=== PATIENT | female | born 1985 | race African-American/Black ===

== ENCOUNTER 2016-09-08 19:02 | Emergency (ER) | payer MEDICAID | END 2016-09-08 20:20 | disposition home or self-care (01) | DX: J06.9 Acute upper respiratory infection, unspecified (principal); B97.89 Other viral agents as the cause of diseases classified elsewhere; O99.513 Diseases of the respiratory system complicating pregnancy, third trimester; Z3A.38 38 weeks gestation of pregnancy ==

== ENCOUNTER 2017-05-11 13:58 | Outpatient (CLI) | payer MEDICAID ==
--- NOTE | 2017-05-12 11:10 | XRAY Report ---
LEFT ANKLE: 05/11/2017 COMPARISON: None. INDICATION: Ankle pain. TECHNIQUE: Three views of the left ankle. FINDINGS: There is a small lateral bone fragment likely related to old trauma. There is a large posterior ossific fragment which may contribute to impingement. No evidence of acute fracture. Alignment appears normal. IMPRESSION: 1. LARGE POSTERIOR OSSIFIC FRAGMENT MAY CONTRIBUTE TO IMPINGEMENT. CORRELATE CLINICALLY. 2. LIKELY OLD SMALL BONE FRAGMENT ABOUT THE LATERAL JOINT. JOB #: [id number] EXT JOB #: [id number] [facility]
== END 2017-05-11 13:59 | disposition home or self-care (01) ==
LOC: DI.N 13:58
PROVIDERS: ATTEND Nurse Practitioner Gerontology
DX: M25.572 Pain in left ankle and joints of left foot (principal)

== ENCOUNTER 2017-05-23 20:57 | Emergency (ER) | payer MEDICAID ==
[2017-05-23 21:07] VITALS: BP 115/73
--- NOTE | 2017-05-23 21:17 | ED Physician Documentation ---
PD HPI SKIN - Stated complaint Stated Complaint: ITCHY - Chief complaint Chief Complaint: Wound - History obtained from History obtained from: Patient - History of Present Illness Timing - onset: Other (Her daughter has head lice. 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 05/23/17 - Allergies Allergies/Adverse Reactions: Allergies Allergy/AdvReac Type Severity Reaction Status Date / Time No Known Drug Allergies Allergy Verified 05/23/17 21:04 - Social History Does the pt smoke?: No Smoking Status: Never smoker Does the pt drink ETOH?: No Does the pt have substance abuse?: No - Immunizations Immunizations are current?: Yes - POLST Patient has POLST: No PD ED PE NORMAL - Vitals Vital signs reviewed: Yes - General General: Alert and oriented X 3, No acute distress - Derm Derm: Other (Scabies type rash on arms. No nits in hair.) - Neuro Neuro: Alert and oriented X 3, Normal speech - Psych Psych: Normal mood, Normal affect Results - Vitals Vitals: Vital Signs - 24 hr 05/23/17 21:05 Temperature 36.0 C L Heart Rate 99 Respiratory 16 Rate Blood Pressure 115/73 O2 Saturation 96 Oxygen O2 Source Room air Departure - Departure Disposition: 01 Home, Self Care Clinical Impression: Head lice, Scabies Condition: Good Record reviewed to determine appropriate education?: Yes Instructions: ED Lice Head, ED Scabies Prescriptions: Permethrin 5% Cream 60 gm TP ONCE #2 cream..g. Comments: Buy nix shampoo which is available over the counter and use as instructed on the package Also benadryl for the itching.
== END 2017-05-23 21:27 | disposition home or self-care (01) ==
LOC: ED 20:57
DX: B85.0 Pediculosis due to Pediculus humanus capitis (principal); B86 Scabies
CPT/HCPCS: 99281; 99282

== ENCOUNTER 2017-06-20 20:14 | Emergency (ER) | payer MEDICAID ==
[2017-06-20 20:27] VITALS: BP 100/75
--- NOTE | 2017-06-20 21:11 | ED Physician Documentation ---
PD HPI SKIN - Stated complaint Stated Complaint: RASH - Chief complaint Chief Complaint: Wound - History obtained from History obtained from: Patient - History of Present Illness Timing - details: Abrupt onset, Now resolved Location: RUE, LUE, Bodywide Quality / character: Itchy. No: Painful, Burning Improved by: Benadryl Associated symptoms: No: Myalgias, Abd pain, N/V/D Similar symptoms before: Work up / diagnostics, Treatment Recently seen: Emergency Dept - Additional information Additional information: Patient is a 31 year old female presenting to the emergency department for an apparent allergic reaction. Patient states that this evening her skin was itching and she had a rash. she took bendaryl and it went away. Patient states that the only change is that they bought a hamster about a month ago. Review of Systems Constitutional: denies: Fever, Myalgias Eyes: denies: Discharge, Irritation Ears: denies: Ear pain, Drainage/discharge, Tinnitus/ringing Nose: denies: Rhinorrhea / runny nose, Congestion Cardiac: denies: Chest pain / pressure Respiratory: denies: Dyspnea, Wheezing GI: denies: Nausea, Vomiting, Constipation Skin: reports: Rash. denies: Abrasion (s) Musculoskeletal: denies: Extremity pain, Joint pain, Extremity swelling Neurologic: reports: Generalized weakness. 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 05/23/17 - Allergies Allergies/Adverse Reactions: Allergies Allergy/AdvReac Type Severity Reaction Status Date / Time No Known Drug Allergies Allergy Verified 05/23/17 21:04 - Social History Does the pt smoke?: No Smoking Status: Never smoker Does the pt drink ETOH?: No Does the pt have substance abuse?: No - Immunizations Immunizations are current?: Yes - POLST Patient has POLST: No PD ED PE NORMAL - General General: Alert and oriented X 3, No acute distress - HEENT HEENT: Atraumatic, PERRL - Neck Neck: Supple, no meningeal sign, No JVD - Cardiac Cardiac: RRR, No murmur - Respiratory Respiratory: No respiratory distress, Clear bilaterally - Abdomen Abdomen: Soft, Non distended - Derm Derm: Normal color, Warm and dry, No rash - Extremities Extremities: No deformity, Normal ROM s pain, No calf tenderness / cord - Neuro Neuro: Alert and oriented X 3, No motor deficit, No sensory deficit, Normal speech Results - Vitals Vitals: Vital Signs - 24 hr 06/20/17 20:23 Temperature 36.4 C L Heart Rate 89 Respiratory 16 Rate Blood Pressure 100/75 O2 Saturation 99 Oxygen O2 Source Room air PD MEDICAL DECISION MAKING - ED course Complexity details: reviewed old records, re-evaluated patient, considered differential, d/w patient ED course: Patient was seen and examined at bedside. patient was well appearing and rash had already resolved. patient required no inpatient testing. Patient had no airway involvement and was stable for discharge with outpatient follow up. Departure - Departure Disposition: Home, Self Care Clinical Impression: Allergic reaction Condition: Good Instructions: ED Allergic Reaction General Other Follow-Up: Alicja Zimmer ARNP [Primary Care Provider] - Within 1 week Comments: Your symptoms have resolved and are likely secondary to an allergic reaction. You should try avoiding the hamster or the hamster bedding. You can take benadryl as needed fro itching. You should follow up with your doctor if symptoms persist and possible see an intern to determine what exactly you are allergic too. You should return to the emergency department for facial swelling, tongue swelling or shortness of breath. Discharge Date/Time: 06/20/17 21:22
== END 2017-06-20 21:22 | disposition home or self-care (01) ==
LOC: ED 20:14
DX: T78.49XA Other allergy, initial encounter (principal); X58.XXXA Exposure to other specified factors, initial encounter
CPT/HCPCS: 99282; 99283

== ENCOUNTER 2018-01-02 08:00 | Outpatient (CLI) | payer MEDICAID ==
[2018-01-02 12:50] LABS: BASOPHILS % (AUTO) 0.4 %; EOSINOPHILS # (AUTO) 0.1 10^3/uL (0.0-0.7); EOSINOPHILS % (AUTO) 0.8 %; HGB - HEMOGLOBIN 12.9 g/dL (12.0-16.0); LYMPHOCYTES # (AUTO) 3.4 10^3/uL (1.5-3.5); LYMPHOCYTES % (AUTO) 40.2 %; MEAN CORPUSCULAR HEMOGLOBIN 30.4 pg (27.0-31.0); MEAN CORPUSCULAR HGB CONC 32.6 g/dL (32.0-36.0); MEAN CORPUSCULAR VOLUME 93.3 fL (81.0-99.0); MEAN PLATELET VOLUME 9.5 fL (7.9-10.8); MONOCYTES # (AUTO) 0.5 10^3/uL (0.0-1.0); MONOCYTES % (AUTO) 5.5 %; NEUTROPHILS # (AUTO) 4.5 10^3/uL (1.5-6.6); NEUTROPHILS % (AUTO) 53.1 %; PLT - PLATELET COUNT 249 10^3/uL (130-450); RED BLOOD COUNT 4.25 10^6/uL (4.20-5.40); RED CELL DISTRIBUTION WIDTH 14.5 % (12.0-15.0); WHITE BLOOD COUNT 8.5 x10^3/uL (4.8-10.8)
[2018-01-02 13:19] LABS: ALBUMIN 3.7 g/dL (3.2-5.5); ALBUMIN/GLOBULIN RATIO 0.9 (1.0-2.2); ALKALINE PHOSPHATASE 56 IU/L (42-121); ALT ALANINE AMINOTRANSFERASE 15 IU/L (10-60); AST ASPARTATE AMINOTRANSFERASE 22 IU/L (10-42); BILIRUBIN,TOTAL 0.7 mg/dL (0.2-1.0); BUN - BLOOD UREA NITROGEN 9 mg/dL (6-20); CARBON DIOXIDE - CO2 25 mmol/L (21-32); CHLORIDE 104 mmol/L (101-111); CHOL/HDL RATIO 2.8 (<4.4); CHOLESTEROL 141 mg/dL; CREATININE 0.7 mg/dL (0.4-1.0); GFR - MDRD 117 (>89); GLUCOSE 96 mg/dL (70-100); HDL CHOLESTEROL 50 mg/dL; LDL CHOLESTEROL,CALCULATED 63 mg/dL; LDL/HDL RATIO 1.3 (<4.4); SODIUM 136 mmol/L (135-145); TOTAL PROTEIN 7.9 g/dL (6.7-8.2); VLDL CHOLESTEROL 28 mg/dL
== END 2018-01-02 08:01 | disposition home or self-care (01) ==
LOC: LAB.N 08:00
PROVIDERS: ATTEND Nurse Practitioner Gerontology
DX: Z13.9 Encounter for screening, unspecified (principal)
CPT/HCPCS: 36415; 80053; 80061; 83721; 84443; 85025

== ENCOUNTER 2018-04-17 01:24 | Emergency (ER) | payer MEDICAID ==
[2018-04-17 01:37] VITALS: BP 126/87
[2018-04-17 02:11] LABS: BILIRUBIN,URINE NEGATIVE (NEGATIVE); GLUCOSE, URINE (UA) NEGATIVE (NEGATIVE); KETONES,URINE (UA) NEGATIVE (NEGATIVE); LEUKOCYTE ESTERASE, URINE NEGATIVE (NEGATIVE); NITRITE,URINE NEGATIVE (NEGATIVE); OCCULT BLOOD,URINE LARGE (NEGATIVE); PROTEIN,URINE 30 mg/dL (NEGATIVE); UROBILINOGEN,URINE 0.2 (NORMAL) E.U./dL (NORMAL)
[2018-04-17 02:13] LABS: CLARITY,URINE CLEAR (CLEAR); HCG UR QUAL NEGATIVE; RBC,URINE TNTC /HPF (0-5); SQUAMOUS EPITHELIAL CELL,UR NONE SEEN (<= Few)
[2018-04-17 02:14] LABS: BACTERIA,URINE Rare /HPF (None Seen); MUCUS,URINE Few Strands
--- NOTE | 2018-04-17 02:23 | ED Physician Documentation ---
PD HPI BACK PAIN - Stated complaint Stated Complaint: BACK PAIN - Chief complaint Chief Complaint: Back Pain - History obtained from History obtained from: Patient - History of Present Illness Timing - onset: How many days ago (3) Timing - duration: Days (3) Timing - details: Gradual onset, Still present Pain level now: 5 Location: Mid Quality: Pain Associated symptoms: No: Fever, Weakness, Numbness, Incontinent of urine, Unable to urinate, Hematuria, Incontinent of stool Improves with: Nothing Worsened by: Movement Similar symptoms before: Has not had sx before Recently seen: Not recently seen - Additional information Additional information: c/o 3 days of midline low back pain, worse with movement. took tylenol without relief. she had undertaken some strenuous activity the day before symptom onset. denies h/o similar back pain. Review of Systems Constitutional: denies: Fever GI: denies: Abdominal Pain : reports: LMP (currently menstruating). 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 05/23/17 Cyclobenzaprine [Flexeril] 10 mg PO TID PRN #20 tablet 04/17/18 Hydrocodone/Acetaminophen 1 - 2 each PO Q6H PRN #20 tablet 04/17/18 [Hydrocodon-Acetaminophen 5-325] - Allergies Allergies/Adverse Reactions: Allergies Allergy/AdvReac Type Severity Reaction Status Date / Time No Known Drug Allergies Allergy Verified 04/17/18 01:36 - Social History Does the pt smoke?: No Smoking Status: Never smoker Does the pt drink ETOH?: No Does the pt have substance abuse?: No - Immunizations Immunizations are current?: Yes - POLST Patient has POLST: No PD ED PE NORMAL - Vitals Vital signs reviewed: Yes - General General: Alert and oriented X 3, No acute distress (NAD at rest, appears uncomfortable with movement involving lower back; moves slowly due to the pain), Well developed/nourished - Abdomen Abdomen: Soft, Non tender - Back Back: No CVA TTP, No spinal TTP - Derm Derm: Normal color, Warm and dry, No rash - Extremities Extremities: No edema - Neuro Neuro: No motor deficit (5/5 bilateral plantarflexion and knee extension) Results - Vitals Vitals: Vital Signs - 24 hr 04/17/18 04/17/18 01:34 02:58 Temperature 36.7 C Heart Rate 88 Respiratory 17 16 Rate Blood Pressure 126/87 H O2 Saturation 97 Oxygen O2 Source Room air - Labs Labs: Laboratory Tests 04/17/18 01:50 Urine Color RED/BLOODY Urine Clarity CLEAR Urine pH 6.0 Ur Specific [place] 1.020 Urine Protein 30 H Urine Glucose (UA) NEGATIVE Urine Ketones NEGATIVE Urine Occult Blood LARGE H Urine Nitrite NEGATIVE Urine Bilirubin NEGATIVE Urine Urobilinogen 0.2 (NORMAL) Ur Leukocyte Esterase NEGATIVE Urine RBC TNTC H Urine WBC 0-3 Ur Squamous Epith Cells NONE SEEN Urine Bacteria Rare Urine Mucus Few Strands Ur Microscopic Review INDICATED Urine Culture Comments NOT INDICATED Urine HCG, Qual NEGATIVE PD MEDICAL DECISION MAKING - ED course Complexity details: considered differential, d/w patient ED course: atraumatic, gradual onset low back pain in this otherwise healthy, young patient. no findings on exam nor elements on HPI/ROS that indicate emergent testing. Will rx vicodin and flexeril with take-home packs provided, f/u with PMD but return if worse Departure - Departure Disposition: 01 Home, Self Care Clinical Impression: Back pain Condition: Good Instructions: ED Neck Back Pain General Follow-Up: Alicja Zimmer ARNP [Primary Care Provider] - (Call to arrange for next available appointment) Prescriptions: Cyclobenzaprine [Flexeril] 10 mg PO TID PRN #20 tablet PRN Reason: Spasms Hydrocodone/Acetaminophen [Hydrocodon-Acetaminophen 5-325] 1 - 2 each PO Q6H PRN #20 tablet PRN Reason: pain Discharge Date/Time: 04/17/18 03:00
[2018-04-17] MEDS ORDERED: HYDROcod/ACETAM 5/325 MG TABLET PO STA (02:38)
[2018-04-17] MEDS ORDERED: CYCLOBENZAPRINE 10 MG Prepack 2 PO PRN (02:38)
[2018-04-17] MEDS ORDERED: HYDROcod/ACET 5/325 Prepack 4 PO STA (02:52)
== END 2018-04-17 03:00 | disposition home or self-care (01) ==
LOC: ED 01:24
DX: M54.9 Dorsalgia, unspecified (principal)
CPT/HCPCS: 81001; 81003; 81025; 87086; 99283

== ENCOUNTER 2019-04-10 09:01 | Emergency (ER) | payer MEDICAID ==
[2019-04-10 09:50] LABS: BILIRUBIN,URINE NEGATIVE (NEGATIVE); GLUCOSE, URINE (UA) NEGATIVE (NEGATIVE); KETONES,URINE (UA) NEGATIVE (NEGATIVE); LEUKOCYTE ESTERASE, URINE NEGATIVE (NEGATIVE); NITRITE,URINE NEGATIVE (NEGATIVE); OCCULT BLOOD,URINE LARGE (NEGATIVE); PROTEIN,URINE TRACE mg/dL (NEGATIVE); UROBILINOGEN,URINE 0.2 (NORMAL) E.U./dL (NORMAL)
[2019-04-10 09:52] LABS: CLARITY,URINE HAZY (CLEAR); HCG UR QUAL NEGATIVE
[2019-04-10 09:53] LABS: BASOPHILS % (AUTO) 0.3 %; EOSINOPHILS % (AUTO) 0.2 %; HGB - HEMOGLOBIN 12.8 g/dL (12.0-16.0); LYMPHOCYTES # (AUTO) 2.9 10^3/uL (1.5-3.5); MEAN CORPUSCULAR HEMOGLOBIN 29.6 pg (27.0-31.0); MEAN CORPUSCULAR HGB CONC 31.7 g/dL (32.0-36.0); MEAN CORPUSCULAR VOLUME 93.3 fL (81.0-99.0); MEAN PLATELET VOLUME 9.6 fL (7.9-10.8); MONOCYTES # (AUTO) 0.6 10^3/uL (0.0-1.0); MONOCYTES % (AUTO) 4.5 %; NEUTROPHILS # (AUTO) 9.6 10^3/uL (1.5-6.6); NEUTROPHILS % (AUTO) 72.6 %; PLT - PLATELET COUNT 291 10^3/uL (130-450); RED BLOOD COUNT 4.33 10^6/uL (4.20-5.40); RED CELL DISTRIBUTION WIDTH 13.6 % (12.0-15.0); WHITE BLOOD COUNT 13.2 x10^3/uL (4.8-10.8)
[2019-04-10 10:08] LABS: RBC,URINE TNTC /HPF (0-5); SQUAMOUS EPITHELIAL CELL,UR FEW Squamous (<= Few)
[2019-04-10 10:09] LABS: BACTERIA,URINE Few /HPF (None Seen)
[2019-04-10 10:09] LABS: ALBUMIN/GLOBULIN RATIO 0.9 (1.0-2.2); BILIRUBIN,TOTAL 0.4 mg/dL (0.2-1.0); CALCIUM 9.2 mg/dL (8.5-10.3); CREATININE 0.8 mg/dL (0.4-1.0); TOTAL PROTEIN 8.3 g/dL (6.7-8.2)
--- NOTE | 2019-04-10 10:26 | ED Physician Documentation ---
History of Present Illness - Stated complaint Stated Complaint: FEMALE - Chief complaint Chief Complaint: Abd Pain - Additonal information Additional information: This is a G5, P5 33-year-old female who does not think she is currently pre gnant, who presents with some cramping and vaginal bleeding. She states that she had her last period of 30 March, and her periods are typically fairly regular. Last night she began having some cramping in her abdomen, she describes this is up near her bellybutton, and this morning she had vaginal bleeding. She states the amount of bleeding is typical for a period for her. She Denies any nausea or vomiting. No pain or burning when she urinates. No concern for STI. 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 05/23/17 Cyclobenzaprine [Flexeril] 10 mg PO TID PRN #20 tablet 04/17/18 Hydrocodone/Acetaminophen 1 - 2 each PO Q6H PRN #20 tablet 04/17/18 [Hydrocodon-Acetaminophen 5-325] - Allergies Allergies/Adverse Reactions: Allergies Allergy/AdvReac Type Severity Reaction Status Date / Time No Known Drug Allergies Allergy Verified 04/10/19 09:17 - Social History Does the pt smoke?: No Smoking Status: Never smoker Does the pt drink ETOH?: No Does the pt have substance abuse?: No - Immunizations Immunizations are current?: Yes - POLST Patient has POLST: No PD ED PE NORMAL - Vitals Vital signs reviewed: Yes - General General: Alert and oriented X 3, No acute distress - HEENT HEENT: PERRL - Neck Neck: Supple, no meningeal sign - Cardiac Cardiac: RRR, No murmur - Respiratory Respiratory: Clear bilaterally - Abdomen Abdomen: Other (No right lower quadrant tenderness, no left lower quadrant tenderness. In the mid abdomen on the mary-umbilical region patient has some mild tenderness, no guarding. No right upper quadrant tenderness to palpation) - Derm Derm: Warm and dry - Extremities Extremities: No deformity - Neuro Neuro: Alert and oriented X 3 - Psych Psych: Normal mood, Normal affect Results - Vitals Vitals: Vital Signs - 24 hr 04/10/19 04/10/19 09:15 11:36 Temperature 37.2 C Heart Rate 85 100 Respiratory 14 16 Rate Blood Pressure 119/71 152/99 H O2 Saturation 98 98 Oxygen O2 Source Room air - Labs Labs: Laboratory Tests 04/10/19 04/10/19 04/10/19 09:18 09:18 09:27 WBC 13.2 H RBC 4.33 Hgb 12.8 Hct 40.4 MCV 93.3 MCH 29.6 MCHC 31.7 L RDW 13.6 Plt Count 291 MPV 9.6 Neut # (Auto) 9.6 H Lymph # (Auto) 2.9 Woods # (Auto) 0.6 Eos # (Auto) 0.0 Baso # (Auto) 0.0 Absolute Nucleated RBC 0.00 Nucleated RBC % 0.0 Sodium 137 Potassium 3.8 Chloride 100 L Carbon Dioxide 30 Anion Gap 7.0 BUN 10 Creatinine 0.8 Estimated GFR (MDRD) 100 Glucose 106 H Calcium 9.2 Total Bilirubin 0.4 AST 19 ALT 17 Alkaline Phosphatase 54 Total Protein 8.3 H Albumin 4.0 Globulin 4.3 H Albumin/Globulin Ratio 0.9 L Lipase 26 Urine Color DARK YELLOW Urine Clarity HAZY Urine pH 7.0 Ur Specific [place] 1.015 Urine Protein TRACE Urine Glucose (UA) NEGATIVE Urine Ketones NEGATIVE Urine Occult Blood LARGE H Urine Nitrite NEGATIVE Urine Bilirubin NEGATIVE Urine Urobilinogen 0.2 (NORMAL) Ur Leukocyte Esterase NEGATIVE Urine RBC TNTC H Urine WBC 0-3 Ur Squamous Epith Cells FEW Squamous Urine Bacteria Few Ur Microscopic Review INDICATED Urine Culture Comments NOT INDICATED Urine HCG, Qual NEGATIVE PD MEDICAL DECISION MAKING - ED course Complexity details: considered differential (Menstruation, dysmenorrhea, abnormal uterine bleeding, appendicitis, UTI, ectopic ) ED course: Pt is very well appearing, abdomen is overall benign with only mild mary- umbilical tenderness. Labs are unrevealing, she does have a mild leukocytosis which is non-specficic. HCG negative, UA negative for infection. On repeat exam she continues to have a very benign abdominal exam. She denies concern for STI. Appendicitis is possible but unlikely given the concurrent presence of vaginal bleeding - menses or abnormal uterine bleeding is more likely. 24 hour follow up with any continued symptoms was discussed. Ovarian torsion highly unlikely given her symptoms and exam. I discussed supportive care and strict return precautions for any worsening, as well as the importance of close outpatient follow up. Pt agreed and was discharged home. Departure - Departure Disposition: Home, Self Care Clinical Impression: Abnormal uterine bleeding Condition: Good Instructions: ED Bleed Irregular Vaginal Follow-Up: Alicja Zimmer ARNP [Primary Care Provider] - Within 1 week Comments: You were seen today for some abdominal cramping and vaginal bleeding. Your labs are reassuring at this time This may be some abnormal bleeding and cramping from the uterus, if you are having heavy bleeding, or becoming lightheaded or having shortness of breath or other concerning symptoms, please return to the emergency department. If you are having abdominal pain that is on the right lower side of your abdomen, or vomiting, please be reevaluated tomorrow to ensure this is not an appendicitis. Please follow-up with your primary care provider or your OB doctor in the next week. You may take ibuprofen 600 mg every 6 hours as needed for pain, and Tylenol 650 mg every 6 hours as needed for pain/cramping. Discharge Date/Time: 04/10/19 11:37
[2019-04-10 11:38] VITALS: BP 152/99
== END 2019-04-10 11:37 | disposition home or self-care (01) ==
LOC: ED 09:01
DX: N93.9 Abnormal uterine and vaginal bleeding, unspecified (principal); R10.33 Periumbilical pain; D72.829 Elevated white blood cell count, unspecified
CPT/HCPCS: 36415; 80053; 81001; 81003; 81025; 83690; 85025; 87086; 99282; 99283

== ENCOUNTER 2019-06-15 19:42 | Emergency (ER) | payer MEDICAID ==
[2019-06-15 19:49] VITALS: BP 134/100
--- NOTE | 2019-06-15 20:04 | ED Physician Documentation ---
History of Present Illness - Stated complaint Stated Complaint: LUMP IN R BREAST - Chief complaint Chief Complaint: General - History obtained from History obtained from: Patient - History of Present Illness Timing: Today Pain level max: 0 Pain level now: 0 - Additonal information Additional information: 33-year-old female states that she found a breast lump today. She states that she has a history of cancer in the family. No overlying skin changes. No nipple changes. Has never had a mammogram. 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 HEENT: None Psych: Bipolar disorder Musculoskeletal: None Derm: None - Past Surgical History Past Surgical History: Yes - Present Medications Home Medications: Ambulatory Orders Medication Instructions Recorded Confirmed No Known Home Medications 06/15/19 06/15/19 - Allergies Allergies/Adverse Reactions: Allergies Allergy/AdvReac Type Severity Reaction Status Date / Time No Known Drug Allergies Allergy Verified 06/15/19 20:05 - Social History Does the pt smoke?: No Smoking Status: Never smoker Does the pt drink ETOH?: No Does the pt have substance abuse?: No - Immunizations Immunizations are current?: Yes - POLST Patient has POLST: No PD ED PE NORMAL - Vitals Vital signs reviewed: Yes - General General: Alert and oriented X 3, No acute distress - HEENT HEENT: Moist mucous membranes - Neck Neck: Supple, no meningeal sign - Cardiac Cardiac: RRR - Respiratory Respiratory: No respiratory distress, Clear bilaterally - Derm Derm: Warm and dry - Neuro Neuro: Alert and oriented X 3 - Free text exam Free text exam: Left breast is normal. Normal lymph node exam as well. Right breast has a smooth mobile mass in the inferior medial quadrant. No nipple changes or discharge. No lymphadenopathy. Results - Vitals Vitals: Vital Signs - 24 hr 06/15/19 19:45 Temperature 36.5 C Heart Rate 92 Respiratory 16 Rate Blood Pressure 134/100 H O2 Saturation 98 Oxygen O2 Source Room air PD MEDICAL DECISION MAKING - ED course Complexity details: considered differential, d/w patient ED course: Patient does have a small mass in the breast. Likely fibrocystic change. Recommend that she follow-up with her doctor for mammogram. No evidence of abscess. No lymphadenopathy. Patient counseled regarding signs and symptoms for which I believe and urgent re-evaluation would be necessary. Patient with good understanding of and agreement to plan and is comfortable going home at this time This document was made in part using voice recognition software. While efforts are made to proofread this document, sound alike and grammatical errors may occur. Departure - Departure Disposition: Home, Self Care Clinical Impression: Breast lump in female Condition: Good Instructions: ED Breast Mass Uncertain Cause, ED Breast Disease Fibrocystic Poss Follow-Up: Alicja Zimmer ARNP [Primary Care Provider] - Within 1 week Comments: Follow up with your doctor for further care. Return if you worsen. You need to have a mammogram and this can be scheduled with your doctor or you can call the hospital on Monday and ask for the diagnostic chair car attendant to schedule a mammogram. Discharge Date/Time: 06/15/19 20:07
== END 2019-06-15 20:07 | disposition home or self-care (01) ==
LOC: ED 19:42
DX: N63.10 Unspecified lump in the right breast, unspecified quadrant (principal); Z80.9 Family history of malignant neoplasm, unspecified
CPT/HCPCS: 99281; 99284

== ENCOUNTER 2019-08-15 17:18 | Emergency (ER) | payer MEDICAID ==
--- NOTE | 2019-08-15 18:19 | ED Physician Documentation ---
History of Present Illness - Stated complaint Stated Complaint: COUGH - Chief complaint Chief Complaint: Resp - History obtained from History obtained from: Patient (34-year-old female presents today with a chief complaint of a fever,nausea, vomiting. This started a week ago, states that she has had a cough off and on with a fever last week. Since then she has had intermittent nausea, no vomiting, she does have some chills and some undoc umented fever monday. She does also admit that a little less than a week ago her and her were having unprotected intercourse and he did not pull out in time, she was thinking that she might be , so she did a home test and it showed negative. She is not due to start her menstrual cycle until midHer main concern today, is that she comes in per the request of her employer. Some people at work father complaining conserver because of her coughing and so she was told to go home and get tested for the Covid-19.) Review of Systems Constitutional: reports: Fever, Chills, Fatigue Eyes: reports: Reviewed and negative Ears: reports: Reviewed and negative Nose: reports: Reviewed and negative Throat: reports: Reviewed and negative Respiratory: reports: Cough. 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 HEENT: None Psych: Bipolar disorder Musculoskeletal: None Derm: None - Past Surgical History Past Surgical History: Yes - Present Medications Home Medications: Ambulatory Orders Medication Instructions Recorded Confirmed Ondansetron Odt [Zofran] 4 mg TL Q6H PRN #10 tablet 08/15/19 - Allergies Allergies/Adverse Reactions: Allergies Allergy/AdvReac Type Severity Reaction Status Date / Time No Known Drug Allergies Allergy Verified 08/15/19 17:27 - Social History Does the pt smoke?: No Smoking Status: Never smoker Does the pt drink ETOH?: No Does the pt have substance abuse?: No - Immunizations Immunizations are current?: Yes - POLST Patient has POLST: No PD ED PE NORMAL - General General: Alert and oriented X 3, No acute distress, Well developed/nourished - HEENT HEENT: Atraumatic, PERRL, EOMI, Ears normal, Moist mucous membranes, Pharynx benign - Neck Neck: No adenopathy - Cardiac Cardiac: RRR, No murmur - Respiratory Respiratory: No respiratory distress, Clear bilaterally - Abdomen Abdomen: Soft, Non tender Results - Vitals Vitals: Vital Signs - 24 hr 08/15/19 17:22 Temperature 36.1 C L Heart Rate 86 Respiratory 18 Rate Blood Pressure 135/82 H O2 Saturation 98 Oxygen O2 Source Room air PD MEDICAL DECISION MAKING - ED course Complexity details: re-evaluated patient, considered differential (We will test patient for Covid-19 today), d/w patient Departure - Departure Disposition: Home, Self Care Clinical Impression: Upper respiratory tract infection Qualifiers: URI type: unspecified viral URI Qualified Code(s): J06.9 - Acute upper re spiratory infection, unspecified Condition: Good Instructions: ED Viral Syndrome Prescriptions: Ondansetron Odt [Zofran] 4 mg TL Q6H PRN #10 tablet PRN Reason: Nausea / Vomiting Comments: You were tested for the Covid-19 today, as I discussed with you it will take 2 to 3 days for the results to come back. In the meantime because of your coworkers, you are advised to stay home taking Tylenol and ibuprofen for fevers, Body aches, And/or headache.You should also do another test in a week or 2, to see if this is the cause of your nausea. I prescribed you antinausea medication Zofran that she can take as needed. Call back in 2 days to get the results of your Covid-19 test.
[2019-08-15 18:34] VITALS: BP 126/92
== END 2019-08-15 18:41 | disposition home or self-care (01) ==
LOC: ED 17:18
DX: J06.9 Acute upper respiratory infection, unspecified (principal); R11.2 Nausea with vomiting, unspecified
CPT/HCPCS: 81599; 99283; 99284

== ENCOUNTER 2021-04-30 11:48 | Emergency (ER) | payer MEDICAID ==
[2021-04-30 12:14] VITALS: BP 124/75
--- NOTE | 2021-04-30 12:43 | ED Physician Documentation ---
History of Present Illness - Stated complaint Stated Complaint: L HAND INJ - Chief complaint Chief Complaint: Ext Problem - History obtained from History obtained from: Patient - History of Present Illness Timing: Today Pain level max: 0 Pain level now: 0 - Additonal information Additional information: Last tetanus shot 2014Patient states that she was cleaning up glass from a plate that shattered when she felt a piece of glass hit her left hand. Concerned about potential retained glass. Does not feel or see anything. In. 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 : None HEENT: None Psych: Bipolar disorder Musculoskeletal: None Derm: None - Past Surgical History Past Surgical History: Yes - Present Medications Home Medications: Ambulatory Orders Medication Instructions Recorded Confirmed Ondansetron Odt [Zofran] 4 mg TL Q6H PRN #10 tablet 08/15/19 - Allergies Allergies/Adverse Reactions: Allergies Allergy/AdvReac Type Severity Reaction Status Date / Time No Known Drug Allergies Allergy Verified 08/15/19 17:27 - Social History Does the pt smoke?: No Smoking Status: Never smoker Does the pt drink ETOH?: No Does the pt have substance abuse?: No - Immunizations Immunizations are current?: No - POLST Patient has POLST: No PD ED PE NORMAL - Vitals Vital signs reviewed: Yes - General General: Alert and oriented X 3, No acute distress - Derm Derm: Warm and dry - Extremities Extremities: Other (Small abrasion to the dorsal aspect of the left hand. No active bleeding. No laceration. No palpable foreign body.) - Neuro Neuro: Alert and oriented X 3 Results - Vitals Vitals: Vital Signs - 24 hr 04/30/21 12:12 Temperature 36.6 C Heart Rate 88 Respiratory 16 Rate Blood Pressure 124/75 O2 Saturation 99 Oxygen O2 Source Room air PD MEDICAL DECISION MAKING - ED course Complexity details: considered differential, d/w patient ED course: Patient with a slight abrasion the left hand. No evidence of glass. No laceration. Tetanus up-to-date. Patient counseled regarding signs and symptoms for which I believe and urgent re-evaluation would be necessary. Patient with good understanding of and agreement to plan and is comfortable going home at this time This document was made in part using voice recognition software. While efforts are made to proofread this document, sound alike and grammatical errors may occur. Departure - Departure Disposition: 01 Home, Self Care Clinical Impression: Abrasion Condition: Good Instructions: ED Abrasion Follow-Up: your,doctor as needed [Other] Comments: Keep the wounds clean. Return if you worsen. Your last tetanus shot was in 2014. Discharge Date/Time: 04/30/21 13:00
== END 2021-04-30 13:00 | disposition home or self-care (01) ==
LOC: ED 11:48
DX: S60.512A Abrasion of left hand, initial encounter (principal); W40.8XXA Explosion of other specified explosive materials, initial encounter; W25.XXXA Contact with sharp glass, initial encounter; Y93.E9 Activity, other interior property and clothing maintenance
CPT/HCPCS: 99281

== ENCOUNTER 2021-07-22 15:39 | Emergency (ER) | payer MEDICAID ==
[2021-07-22 15:45] VITALS: BP 140/90
[2021-07-22] MEDS ORDERED: PENICILLIN VK 250 MG TABLET PO STA (16:09)
[2021-07-22] MEDS ORDERED: HYDROcod/ACETAM 5/325 MG TABLET PO STA (16:09)
--- NOTE | 2021-07-22 16:11 | ED Physician Documentation ---
History of Present Illness - Stated complaint Stated Complaint: TOOTH& GUM PX - Chief complaint Chief Complaint: Heent - History obtained from History obtained from: Patient - History of Present Illness Timing: How many days ago (several days) Pain level max: 8 Pain level now: 6 - Additonal information Additional information: 35-year-old female with dental pain ongoing for the past several days. She states she tried to call a dentist but no one could see her. She feels a swelling on her left lateral gum. Worse with eating and drinking. Nothing makes it better. No fevers. No chills. 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 : None HEENT: None Psych: Bipolar disorder Musculoskeletal: None Derm: None - Past Surgical History Past Surgical History: Yes - Present Medications Home Medications: Ambulatory Orders Medication Instructions Recorded Confirmed Ondansetron Odt [Zofran] 4 mg TL Q6H PRN #10 tablet 08/15/19 HYDROcod/ACETAM 5/325 [[place] 5/325] 1 - 2 ea PO Q6H PRN #14 tablet 07/22/21 Penicillin V Potassium 500 mg PO Q6HR #40 tablet 07/22/21 - Allergies Allergies/Adverse Reactions: Allergies Allergy/AdvReac Type Severity Reaction Status Date / Time No Known Drug Allergies Allergy Verified 07/22/21 15:42 - Social History Does the pt smoke?: No Smoking Status: Never smoker Does the pt drink ETOH?: No Does the pt have substance abuse?: No - Immunizations Immunizations are current?: No - POLST Patient has POLST: No PD ED PE NORMAL - Vitals Vital signs reviewed: Yes - General General: Alert and oriented X 3, No acute distress - HEENT HEENT: Moist mucous membranes - Derm Derm: Warm and dry - Neuro Neuro: Alert and oriented X 3 PD ED PE EXPANDED - HEENT HEENT Visual: 1 - abscess (Abscess on the buccal side of tooth #20.) Results - Vitals Vitals: Vital Signs - 24 hr 07/22/21 15:42 Temperature 36.5 C Heart Rate 90 Respiratory 16 Rate Blood Pressure 140/90 H O2 Saturation 98 Oxygen O2 Source Room air PD MEDICAL DECISION MAKING - ED course Complexity details: considered differential, d/w patient ED course: An 18-gauge needle was used to unroofed the abscess and allow the abscess to drain. Patient tolerated well. No facial swelling or cellulitis. No trismus. No Ludwigs angina. We will place on antibiotics and have her follow-up with dentistry for further care. Patient counseled regarding signs and symptoms for which I believe and urgent re-evaluation would be necessary. Patient with good understanding of and agreement to plan and is comfortable going home at this time This document was made in part using voice recognition software. While efforts are made to proofread this document, sound alike and grammatical errors may occur. Departure - Departure Disposition: 01 Home, Self Care Clinical Impression: Dental caries Condition: Good Instructions: ED Tooth Pain Follow-Up: SUE GIFFORD [Physician No Access] - Pritesh Castro DDS [Physician No Access] - NATASHA KEVIN DDS, [Physician No Access] - Prescriptions: Penicillin V Potassium 500 mg PO Q6HR #40 tablet HYDROcod/ACETAM 5/325 [[place] 5/325] 1 - 2 ea PO Q6H PRN #14 tablet PRN Reason: Pain Comments: Your prescriptions were sent to [facility] in [place]. Please follow-up with a dentist for further care. You can try the dentist listed above to see if they have any openings. Return if you worsen. Take all antibiotics until gone. I am prescribing a short course of narcotic pain medication for you. These are potentially dangerous and addictive medications that should be used carefully. These medications may constipate you. Take an xhlr-jxu-blxqbmo stool softener (docusate) twice daily with plenty of water while taking these medications. If you go 24 hours without a bowel movement, take oggv-itr-plwlboa miralax, per package instructions. Do not drink or drive while taking these medications. If you received narcotic or sedating medications while in the emergency department, do not drive for 24 hours. Store this medication in a safe, secure place and out of reach of children. It is a violation of federal law to give or sell this medication to another person or to use in a manner other than prescribed. The ED will not refill narcotic prescriptions, including prescriptions lost or stolen. To dispose of unwanted medications: 1. [facility] at [address] in [place] has a medication drop box. They accept prescription medications (in pill form) Monday through Monday 9:00 a.m. to 5:00 p.m. 2. The [facility] accepts prescription medications (in pill form only) for disposal year round. Call for more informati on. 3. Contact the [facility] for the next [facility] sponsored prescription drug collection event. , [phone], or [phone]; Discharge Date/Time: 07/22/21 16:24
== END 2021-07-22 16:24 | disposition home or self-care (01) ==
LOC: ED 15:39
DX: K02.9 Dental caries, unspecified (principal)
CPT/HCPCS: 41800; 99282; A9270

== ENCOUNTER 2022-02-24 10:52 | Emergency (ER) | payer MEDICAID ==
[2022-02-24 11:02] VITALS: BP 124/74
--- NOTE | 2022-02-24 11:53 | ED Physician Documentation ---
PD HPI HEENT - Stated complaint Stated Complaint: EAR PX - Chief complaint Chief Complaint: Heent - History obtained from History obtained from: Patient - Additional information Additional information: She presents for the evaluation of muffled hearing since this morning. She was in the shower and then felt like there was water in her ear and then used a Q- tip and then could not hear out of the left ear. There is no pain. No URI symptoms. Review of Systems Constitutional: reports: Reviewed and negative Ears: reports: Loss of hearing. 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 : None HEENT: None Psych: Bipolar disorder Musculoskeletal: None Derm: None - Past Surgical History Past Surgical History: Yes - Present Medications Home Medications: Ambulatory Orders Medication Instructions Recorded Confirmed Ondansetron Odt [Zofran] 4 mg TL Q6H PRN #10 tablet 08/15/19 HYDROcod/ACETAM 5/325 [[place] 5/325] 1 - 2 ea PO Q6H PRN #14 tablet 07/22/21 Penicillin V Potassium 500 mg PO Q6HR #40 tablet 07/22/21 - Allergies Allergies/Adverse Reactions: Allergies Allergy/AdvReac Type Severity Reaction Status Date / Time No Known Drug Allergies Allergy Verified 02/24/22 11:02 - Social History Does the pt smoke?: No Smoking Status: Never smoker Does the pt drink ETOH?: No Does the pt have substance abuse?: No - Immunizations Immunizations are current?: No - POLST Patient has POLST: No PD ED PE NORMAL - Vitals Vital signs reviewed: Yes - General General: Alert and oriented X 3, No acute distress - HEENT HEENT: Other (Complete occlusion of the left ear canal with cerumen) - Neuro Neuro: Alert and oriented X 3, Normal speech - Psych Psych: Normal mood, Normal affect Results - Vitals Vitals: Vital Signs - 24 hr 02/24/22 11:00 Temperature 36.8 C Heart Rate 87 Respiratory 16 Rate Blood Pressure 124/74 O2 Saturation 96 Oxygen O2 Source Room air Procedures - General procedure General procedure: The left ear canal was irrigated with warm water syringe irrigation with removal of her cerumen and resolution of her hearing. Departure - Departure Disposition: Home, Self Care Clinical Impression: Impacted cerumen of left ear Condition: Good Record reviewed to determine appropriate education?: Yes Instructions: ED Earwax Removal
== END 2022-02-24 11:56 | disposition home or self-care (01) ==
LOC: ED 10:52
DX: H61.22 Impacted cerumen, left ear (principal)
CPT/HCPCS: 69209; 99281

== ENCOUNTER 2022-04-16 11:40 | Emergency (ER) | payer MEDICAID ==
--- NOTE | 2022-04-16 12:13 | ED Physician Documentation ---
PD HPI URI - Stated complaint Stated Complaint: SORE THROAT - Additional information Additional information: She developed a sore throat last night, no associated fevers, runny nose, cough. Her daughter is sick with a URI. 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 HEENT: None Psych: Bipolar disorder Musculoskeletal: None Derm: None - Past Surgical History Past Surgical History: Yes - Present Medications Home Medications: Ambulatory Orders Medication Instructions Recorded Confirmed No Known Home Medications 04/16/22 04/16/22 - Allergies Allergies/Adverse Reactions: Allergies Allergy/AdvReac Type Severity Reaction Status Date / Time No Known Drug Allergies Allergy Verified 02/24/22 11:02 - Social History Does the pt smoke?: No Smoking Status: Never smoker Does the pt drink ETOH?: No Does the pt have substance abuse?: No - Immunizations Immunizations are current?: No - POLST Patient has POLST: No PD ED PE NORMAL - Vitals Vital signs reviewed: Yes - General General: Alert and oriented X 3, No acute distress - HEENT HEENT: Ears normal, Other (Mild redness of the tonsillar pillars without tonsillar exudate or swelling.) - Neck Neck: Supple, no meningeal sign, No bony TTP - Cardiac Cardiac: RRR, No murmur - Respiratory Respiratory: No respiratory distress, Clear bilaterally - Abdomen Abdomen: Normal bowel sounds, Soft, Non tender - Back Back: No CVA TTP, No spinal TTP - Derm Derm: Normal color, Warm and dry - Extremities Extremities: No edema - Neuro Neuro: Alert and oriented X 3, Normal speech Results - Vitals Vitals: Vital Signs - 24 hr 04/16/22 12:13 Temperature 36.7 C Heart Rate 67 Respiratory 19 Rate Blood Pressure 124/98 H O2 Saturation 100 Oxygen O2 Source Room air - Labs Labs: Laboratory Tests 04/16/22 12:33 Nasal Adenovirus (PCR) NOT DETECTED Nasal B. parapertussis DNA (PCR) NOT DETECTED Nasal Coronavir 229E PCR NOT DETECTED Nasal Coronavir HKU1 PCR NOT DETECTED Nasal Coronavir NL63 PCR NOT DETECTED Nasal Coronavir OC43 PCR NOT DETECTED Nasal Enterovir/Rhinovir PCR NOT DETECTED Nasal Influenza A H3 PCR DETECTED A Nasal Influenza B PCR NOT DETECTED Nasal Parainfluen 1 PCR NOT DETECTED Nasal Parainfluen 2 PCR NOT DETECTED Nasal Parainfluen 3 PCR NOT DETECTED Nasal Parainfluen 4 PCR NOT DETECTED Nasal RSV (PCR) NOT DETECTED Nasal B.pertussis DNA PCR NOT DETECTED Nasal C.pneumoniae (PCR) NOT DETECTED Yossi Human Metapneumo PCR NOT DETECTED Nasal M.pneumoniae (PCR) NOT DETECTED Nasal SARS-CoV-2 (PCR) NOT DETECTED PD MEDICAL DECISION MAKING - ED course ED course: 36-year-old woman with viral pharyngitis and URI, 0 out of 4 Centor criteria She was discharged with bio [employer] panel pending, I called her subsequent to discharge to let her know about flu A positivity. We discussed Tamiflu, but I did not recommend it. Departure - Departure Disposition: Home, Self Care Clinical Impression: Viral URI Condition: Good Record reviewed to determine appropriate education?: Yes Instructions: ED Viral Syndrome Comments: You can take 800 mg of ibuprofen every 6 hours as needed for pain or fevers. Return if worse. You have a bio fire panel pending which checks for COVID, flu, and number of other common causes of fever. I will call you in a few hours at [phone] with results. Discharge Date/Time: 04/16/22 12:39
[2022-04-16 12:16] VITALS: BP 124/98
[2022-04-16 15:04] LABS: B. PARAPERTUSSIS- RESP PCR PAN NOT DETECTED; B. PERTUSSIS- RESP PCR PANEL NOT DETECTED; C. PNEUMONIAE- RESP PCR PANEL NOT DETECTED; CORONAVIRUS 229E-RESP PCR NOT DETECTED; CORONAVIRUS HKU1-RESP PCR NOT DETECTED; CORONAVIRUS NL63-RESP PCR NOT DETECTED; CORONAVIRUS OC43-RESP PCR NOT DETECTED; HUMAN METAPNEUMOVIRUS NOT DETECTED; INFLUENZA A H3- RESP PCR PANEL DETECTED; INFLUENZA B - RESP PCR PANEL NOT DETECTED; M. PNEUMONIAE- RESP PCR PANEL NOT DETECTED; PARAINFLUENZA VIRUS 1 NOT DETECTED; PARAINFLUENZA VIRUS 2 NOT DETECTED; PARAINFLUENZA VIRUS 3 NOT DETECTED; PARAINFLUENZA VIRUS 4 NOT DETECTED; RHINOVIRUS/ENTEROVIRUS NOT DETECTED; RSV- RESP PCR PANEL NOT DETECTED; SARS-CoV-2 -RESP PCR PANEL NOT DETECTED
== END 2022-04-16 12:39 | disposition home or self-care (01) ==
LOC: ED 11:40
DX: J10.1 Influenza due to other identified influenza virus with other respiratory manifestations (principal)
CPT/HCPCS: 87633; 99282; 99283

== ENCOUNTER 2022-10-10 13:14 | Emergency (ER) | payer MEDICAID ==
[2022-10-10 13:21] VITALS: BP 152/86
--- NOTE | 2022-10-10 13:59 | XRAY Report ---
PROCEDURE: Chest 2 View X-Ray INDICATIONS: cough TECHNIQUE: 2 views of the chest were acquired. COMPARISON: None. FINDINGS: Surgical changes and devices: None. Lungs and pleura: No pleural effusions or pneumothorax. Lungs are clear. Mediastinum: Mediastinal contours appear normal. Heart size is normal. Bones and chest wall: No suspicious bony lesions. Overlying soft tissues appear unremarkable. IMPRESSION: No acute cardiopulmonary process. Reviewed by: Keenan Simmons MD on 10/10/2022 1:57 PM PDT Approved by: Keenan Simmons MD on 10/10/2022 1:57 PM PDT Station ID: [id number]
[2022-10-10] MEDS ORDERED: BENZONATATE 100 MG CAPSULE PO STA (14:29)
[2022-10-10] MEDS ORDERED: HYDROcod/ACETAM 5/325 MG TABLET PO STA (14:29)
[2022-10-10] MEDS ORDERED: IBUPROFEN 800 MG TABLET PO STA (14:29)
--- NOTE | 2022-10-10 14:29 | ED Physician Documentation ---
PD HPI CHEST PAIN - Stated complaint Stated Complaint: CHEST PX,COUGH - Chief complaint Chief Complaint: Resp - History obtained from History obtained from: Patient - Additional information Additional information: She had a minimally productive cough for 2 weeks. Her concern now is over the last couple days she has developed sternal pain when she coughs. She denies fevers or shortness of breath. No pedal edema or calf pain. Her son is also sick with a cough. 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 HEENT: None Psych: Bipolar disorder Musculoskeletal: None Derm: None - Past Surgical History Past Surgical History: Yes - Present Medications Home Medications: Ambulatory Orders Medication Instructions Recorded Confirmed Benzonatate [Tessalon] 200 mg PO TID PRN #20 cap 10/10/22 HYDROcod/ACETAM 5/325 [[place] 5/325] 1 - 2 tab PO Q6H PRN #15 tablet 10/10/22 Ibuprofen [Motrin] 800 mg PO Q8H PRN #20 tablet 10/10/22 - Allergies Allergies/Adverse Reactions: Allergies Allergy/AdvReac Type Severity Reaction Status Date / Time No Known Drug Allergies Allergy Verified 10/10/22 13:19 - Social History Does the pt smoke?: No Smoking Status: Never smoker Does the pt drink ETOH?: No Does the pt have substance abuse?: No - Immunizations Immunizations are current?: Yes - POLST Patient has POLST: No PD ED PE NORMAL - Vitals Vital signs reviewed: Yes - General General: Alert and oriented X 3, No acute distress - Cardiac Cardiac: RRR, No murmur - Respiratory Respiratory: No respiratory distress, Clear bilaterally - Abdomen Abdomen: Non tender - Extremities Extremities: No edema, No calf tenderness / cord - Neuro Neuro: Alert and oriented X 3, Normal speech Results - Vitals Vitals: Vital Signs - 24 hr 10/10/22 13:19 Temperature 36.5 C Heart Rate 86 Respiratory 20 Rate Blood Pressure 152/86 H O2 Saturation 98 Oxygen O2 Source Room air - Rads (name of study) 2 view chest x-ray is unremarkable Relevant Findings:: Final report received, EMP independent interpretation of test PD Medical Decision Making - ED course ED course: 37-year-old woman with sternal pain after coughing related to a viral respiratory infection. Symptomatic treatment is offered and accepted. Nothing in the history or physical to suggest a more serious cause such as ACS, PE etc. Departure - Departure Disposition: 01 Home, Self Care Clinical Impression: Cough Qualifiers: Cough type: acute Qualified Code(s): R05.1 - Acute cough Strain of chest wall Qualifiers: Encounter type: initial encounter Qualified Code(s): S29.011A - Strain of muscl e and tendon of front wall of thorax, initial encounter Condition: Good Record reviewed to determine appropriate education?: Yes Instructions: ED URI Viral Prescriptions: Ibuprofen [Motrin] 800 mg PO Q8H PRN #20 tablet PRN Reason: PAIN &/OR FEVER HYDROcod/ACETAM 5/325 [[place] 5/325] 1 - 2 tab PO Q6H PRN #15 tablet PRN Reason: Pain Benzonatate [Tessalon] 200 mg PO TID PRN #20 cap PRN Reason: Cough Comments: You were seen today for an ongoing cough. This is caused some pain and strain of your chest wall. For this I prescribed some cough medicine and pain medication and anti-inflammatories to [facility] in [place]. Follow-up with your doctor towards the end of the week if not better. Return for new or worsening symptoms. I am prescribing a short course of narcotic pain medication for you. These are potentially dangerous and addictive medications that should be used carefully. These medications may constipate you. Take an ieym-mda-hjkinpi stool softener (docusate) twice daily with plenty of water while taking these medications. If you go 24 hours without a bowel movement, take kgop-ihv-ihzyrok miralax, per package instructions. Do not drink or drive while taking these medications. If you received narcotic or sedating medications while in the emergency department, do not drive for 24 hours. Store this medication in a safe, secure place and out of reach of children. It is a violation of federal law to give or sell this medication to another person or to use in a manner other than prescribed. The ED will not refill narcotic prescriptions, including prescriptions lost or stolen. To dispose of unwanted medications: 1. [facility] at [address] in [place] has a medication drop box. They accept prescription medications (in pill form) Monday through Monday 9:00 a.m. to 5:00 p.m. 2. The [facility] accepts prescription medications (in pill form only) for disposal year round. Call for more information. 3. Contact the [facility] for the next [facility] sponsored prescription drug collection event. , [phone], or [phone]; Note that many narcotic pain relievers also contain Tylenol/acetaminophen. Please ensure that your total dose of acetaminophen from all sources does not exceed 3 g (3000 mg) per day.
== END 2022-10-10 14:46 | disposition home or self-care (01) ==
LOC: ED 13:14
DX: R05.1 Acute cough (principal); S29.011A Strain of muscle and tendon of front wall of thorax, initial encounter; X58.XXXA Exposure to other specified factors, initial encounter
CPT/HCPCS: 71046; 99283; 99284; A9270